=== PATIENT | male | born 1950 | race Caucasian/White ===

== ENCOUNTER → 2017-11-19 | Day surgery (SDC) | payer BC ==
[~2017-11-19] VITALS: Ht 177.8 cm; Wt 84.0 kg
[~2017-11-19] MED LIST: ASPI81TA28 PO; ATOR-22 PO; FENTANYL CITRATE INJ 50 MCG/1 ML 2 ML VIAL ONE; FLUO1SOL; HEPARIN SOD (PORCINE) 1000 UNIT/ML 10 ML VIAL ONE; LISI40TA3 PO; METF500T5 PO; METO25TA56 PO; MIDAZOLAM HCL 1 MG/ML 2ML VIAL ONE; NITROGLYCERIN/D5W 100MCG/ML 20ML SYR ONE; NiCARDipine HCL INJ 2.5 MG/ML 10 ML AMP ONE; ZOLP10TA6 PO
[2017-11-19 08:48] VITALS: BP 133/69; PULSE 55; TEMP 36.5; O2SAT 99; Ht 177.8 cm; Wt 84.0 kg
--- NOTE | 2017-11-19 08:49 | DIAGNOSTIC IMAGING REPORT ---
TWO VIEW CHEST CLINICAL HISTORY: Preoperative examination for cardiac catheterization. FINDINGS: PA and lateral chest radiographs are obtained. No prior studies are available for comparison at the time of dictation. The cardiomediastinal silhouette is unremarkable. There is nonspecific interstitial thickening. No airspace consolidation or pleural effusion is identified. A nipple shadow projects over the left lung base. There is no pneumothorax. The bony thorax appears intact. IMPRESSION: No active disease in the chest. Electronically signed by: Santos Humphries M.D. 11/19/2017 8:48 AM Dictated Date/Time: 11/19/2017 8:47 AM
[2017-11-19 09:11] LABS: BASO ABS # 0.05 K/uL (0-0.2); HEMATOCRIT 40.2 % (42-52); HEMOGLOBIN 13.9 g/dL (14.0-18.0); IG# 0.01 K/uL (0.00-0.02); LYMPH % 32.9 %; LYMPH ABS # 1.66 K/uL (1.2-3.4); MEAN CELL VOLUME 91.2 fL (80-100); MEAN CORPUSCULAR HEMOGLOBIN 31.5 pg (25-34); MONO % 8.3 %; MONO ABS # 0.42 K/uL (0.11-0.59); NEUT % 55.6 %; NEUT ABS # 2.81 K/uL (1.4-6.5); PLATELET COUNT 227 K/uL (130-400); RED CELL DISTRIBUTION WIDTH CV 12.5 % (11.5-14.5); RED CELL DISTRIBUTION WIDTH SD 41.7 fL (36.4-46.3); WHITE BLOOD COUNT 5.05 K/uL (4.8-10.8)
[2017-11-19 09:17] LABS: MEAN CORPUSCULAR HGB CONC 34.6 g/dl (32-36)
[2017-11-19 09:34] LABS: CALCIUM 9.1 mg/dl (8.5-10.1); CREATININE 0.94 mg/dl (0.60-1.40); POTASSIUM 4.7 mmol/L (3.5-5.1)
--- NOTE | 2017-11-19 09:43 | History & Physical Bridge Note ---
H&P Re-Evaluation Bridge Note: I have examined the patient, reviewed the History & Physical and in the interval since the performance of the History & Physical I have noted the following changes of clinical significance: No changes noted
--- NOTE | 2017-11-19 09:45 | Pre Sedation Assessment ---
Pre Sedation Assessment General Date of Sedation: Nov 19, 2017. Vital Signs Past 12 Hours Date Time Temp Pulse Resp B/P (MAP) Pulse Ox O2 Delivery O2 Flow Rate FiO2 11/19/17 08:48 36.5 55 16 133/69 (90) 99 Room Air Review Cardiovascular: regular rate, rhythm, no edema, no gallop, no murmur Lungs: chest non-tender, lungs clear Pre-Sedation Airway Assessment Smoking Status: Never Smoker Hx of Sleep Apnea: Yes Short Thick Neck: No Oral Cavity: WNL Mallampati Classification: Class II ASA Classification: Class III Procedure Planning Contraindications for Sedation: None Current Medications Reviewed: Yes Notes The planned sedation has been discussed with the patient. Informed Consent was obtained. I have identified the patient, determined the appropriateness of sedation and have assessed the patient immediately prior to the procedure. All medicine(s) and interventions are by my order.
--- NOTE | 2017-11-19 10:59 | [facility] Post Operative Brief Note ---
Preliminary Procedure Note Procedure Date Nov 19, 2017. Pre-Procedure Diagnosis Positive Stress Test AUC Score 7 Post-Procedure Diagnosis Moderate CAD Procedure(s) Performed Coronary Angiography, Left Heart Cath, LV Angiography Faucet Polisher Dr. Jose R Naranjo Still Worker Helper(s) Violet Yates Estimated Blood Loss < 15 cc Medication(s) Fentanyl (Fentanyl 12.5 mcg IV), Heparin (5000 units IV), Nicardipine (250 mcg intra-arterial after arterial sheath placed), Versed (1 mg IV), Lidocaine 1% ( Local infiltration at access site) Preliminary Findings Right dominant coronary anatomy Calcification of the proximal left coronary system Left main narrowing in comparison to the left anterior descending diffusely with catheter damping and ventricularization on engagement of the ostium but no defined lesion Left anterior descending: Type III with moderate diffuse \ luminal irregularities, mild ectasia. Large mid vessel origin diagonal. Left circumflex: Consists of a large obtuse marginal and a large posterior lateral branch. There is an ostial 60% narrowing and 70% proximal OM narrowing Ramus intermedius: Moderately large vessel with 50% narrowing origin Right coronary artery: Dominant, with long large posterior descending artery and 2 posterior ventricular branches after the AV groove. There are diffuse luminal irregularities throughout with 30-40% narrowing origin posterior descending artery Left ventricular angiography EF 55% no significant mitral insufficiency Left ventricular end-diastolic pressure 13, no transaortic valve gradient Recommendations management recommendations (Patient referred for IVUS of the ostial left main) Specimens None Fluids (cc crystalloids) 70 Anesthesia Start 1003 Stop 1034 Procedural Complication(s) None Disposition IVUS same setting
--- NOTE | 2017-11-19 11:10 | Post Sedation Assessment ---
Post Sedation Assessment General Date of Sedation Nov 19, 2017. Vital Signs: Vital Signs Past 12 Hours Date Time Temp Pulse Resp B/P (MAP) Pulse Ox O2 Delivery O2 Flow Rate FiO2 11/19/17 11:01 55 16 124/67 (86) 98 Room Air 11/19/17 08:48 36.5 55 16 133/69 (90) 99 Room Air Post Procedure Recovery Score Activity: (2) Moves 4 extremities * Respiration: (2) Deep breath/cough Circulation: (2) +/-20% PreAnes Value Consciousness: (2) Fully Awake Oxygen Saturation: (2) > 92% On Room Air Post Anesthesia Score: 10 Discharge Sedation Level of Care: Fast Track Phase II Post Sedation Plan On clinical assessment, the patient appears to have tolerated the sedation without complications. Patient is recovering as anticipated. Patient will continue to be monitored by nursing and may be discharged when sedation discharge criteria are met per below protocol. Upon Completions of procedure and additional 15 minutes continue every 5 minute vital signs and the P.A.R. score; then discharge to a Phase I or Fast Track to Phase II per the following guidelines: * Discharge Patient to appropriate Phase II area if PAR is 8 or greater or return to pre- procedure baseline. The post - procedure orders will be as directed. * If PAR score is less than 8 or not return to pre-procedure baseline then patient will follow Phase I monitoring till PAR is reached for Phase II. The Phase I may be done in procedure room or may call to secure a Phase I area. * If naloxone or flumazenil are used for reversal, hold in Phase I for an additional 60 -120 minutes before discharge to Phase II. Please call the Sedation Physician to re-evaluate and complete post-note for discharge to Phase II area. Do NOT discharge from procedure sedation or Phase 1 until post- sedation evaluation note is complete by procedure /sedation MD Sedation Discharge Instructions to be given to the patient at discharge to home.
--- NOTE | 2017-11-19 11:28 | Cardiac Catheterization ---
Procedure Note Procedure Date Nov 19, 2017. Pre-Procedure Diagnosis Positive Stress Test AUC Score 7 Post-Procedure Diagnosis Severe CAD Procedure(s) Performed IVUS Drafter Construction missy Structures Mechanic(s) jackson Estimated Blood Loss <10 Medication(s) Heparin, Nicardipine, Versed, Lidocaine 1% Summary of Findings IVUS ASSESSMENT OF LEFT MAIN For full details of patient's coronary angiography please cath report dictated by Dr. Naranjo. Briefly, patient noted to moderate left main disease with catheter dampening with ostial LM engagement. Decision to proceed with further assessment of LM by IVUS. - LM engaged with JL3.5 guide - BMW wire placed into distal LAD - IVUS catheter placed into mid LAD - Pullback showed moderate to severe diffuse, calcified proximal LAD disease ( stenosis in proximal LAD 60-70%, MLA 6.1 cm2). - Ostial LM with severe, mildly calcified disease (CSA 5.2 cm2). - Post procedure angiography revealed no apparent complications. TR Band placed. Summary: 1. Severe ostial LM disease (CSA 5.2 cm2). 2. Moderate to severe calcified diffuse proximal LAD disease (60-70% stenosis). 3. Moderate to severe ostial circumflex and OM disease. Recommendation: -- Referral to [facility] cardiac surgery for consideration of CABG. Hemodynamics Rest Ao: 110/53/80 Final Ao: 122/61/87 LV: -- Recommendations CABG Specimens None Radiation Exposure (mGy) 2055 Contrast (mls) 20 Opti Fluids (cc crystalloids) 62 NSS Drains none Anesthesia moderate Procedural Complication(s) None Disposition R&D Engineer Holding/Recovery ACC Data Cardiac Status Clinical evaluation leading to the procedure CAD Presntation: Positive Stress Test Anginal Classification: CCS III Heart Failure: No, NYHA Class: CCS I Cardiogenic Shock w/in 24Hrs: No Cardiac Arrest w/in 24Hrs: No Imaging studies past 6 months: Yes Stress studies past 6 months: Yes Stress Echocardiogram: Yes - Positive, Risk/Extent of Ischemia (Low) Closure Device Percutaneous Entry Location: Radial Recommendations: CABG Intraprocedure Events Significant Dissection: No Perforation: No
--- NOTE | 2017-11-19 12:59 | Discharge Instructions ---
Discharge Instructions Procedure Procedure Date: Nov 19, 2017. Reason for Visit: *Pt Needs Lab/Xray 1ST*Abn Stress *Dr Naranjo To Do*. Discharge Discharge Date: Nov 19, 2017. Discharge Diagnosis: Ostial left main coronary disease Last Recorded Wt (Kilograms): 84 Anesthesia Post Anesthesia Instructions: If you have had General Anesthesia or IV Sedation: * Do not drive today. * Resume driving when surgeon permits. * Do not make important decisions or sign legal documents today. * Call surgeon for: 1. Temperature elevations greater than 101 degrees F. 2. Uncontrollable pain. 3. Excessive bleeding. 4. Persistent nausea and vomiting. 5. Medication intolerance (nausea, vomiting or rash). * For nausea and vomiting use only clear liquids such as: tea, soda, bouillon until nausea subsides, then gradually increase diet as tolerated. * If you have any concerns or questions, call your surgeon's office. If physician is unavailable and it is an emergency, call 911 or go to the nearest emergency room. Instructions Activity Recommendations: limitations as noted below Recommended Home Diet: resume previous diet Allergies: Coded Allergies: Penicillins (Unverified Allergy, Intermediate, HIVES, 11/19/17) Provider Instructions ACTIVITY RECOMMENDATIONS: Excess manipulation of the wrist should be avoided for the next 24-48 hours. * No lifting over 2 pounds (approximately a 1/2 gallon of milk) with the utilized arm for 24 hours. * No strenuous activity such as bowling or tennis for 3 days. * Keep the site of the procedure covered with a bandage for 24 hours. *You may shower the day after the procedure. Do not take a tub bath or submerge the puncture site in water for the next 3 days. *Do not operate any motorized equipment for 3 days. SPECIAL CARE INSTRUCTIONS: The site may be slightly bruised and sore following your procedure. Should any of the following occur, contact the Dr. who performed your procedure. 1. Redness/inflammation, swelling, chills, or fever, or colored drainage at procedure site within 3-7 days after your procedure. 2. Coldness, discoloration, ongoing numbness, severe pain, or swelling. Expect mild tingling of hand and tenderness at the puncture site for up to three days. If this persists beyond three days, or other symptoms develop, notify the Dr. who performed your procedure. BLEEDING: If the procedure site on your wrist begins to bleed, do not panic 1. Place 1 or 2 fingers firmly just slightly above the insertion site to stop the bleeding. You may be able to feel your pulse as you hold pressure. 2. Lift your finger after 5 minutes to see if the bleeding has stopped. 3. Once the bleeding has stopped, gently wipe the wrist area clean with a bandage. * If the bleeding from your wrist does not stop after 10 minutes, or if there is a large amount of bleeding or spurting, call 911 (do not drive yourself to the hospital). SKIN IRRITATION: * You may experience some redness and/or swelling in the area where radiation was administered. If any skin irritation occurs, please contact your family physician. FOLLOW UP VISIT: Keep any scheduled doctor appointments. Follow Up Additional Instructions: Resume metformin on Friday Follow-up with: Dr Misha Davidson [facility] [place] [facility] 11:30 am Layla Vieira Recommendations: Call your doctor if: * Temperature above 101 degrees * Pain not relieved by pain medicine ordered * There is increased drainage or redness from any incision * You have any unanswered questions or concerns. Your Doctors Instructions noted above were prepared by provider Jose R Naranjo. Patient Signature Section: Patient Instructions Signature Page Nils Ocampo Patient (or Guardian) Signature/Date: I have read and understand the instructions given to me by my caregivers. Caregiver/RN/Doctor Signature/Date: The above-named patient and/or guardian has received patient instructions on this date. + Original Patient Signature Page (only) stays with chart. Please make copy for patient.
[2017-11-19 13:45] VITALS: O2SAT 98
[2017-11-19 14:00] VITALS: BP 110/71
--- NOTE | 2017-11-19 16:56 | CARDIAC CATH REPORT ---
PROCEDURES: Left heart catheterization, coronary and left ventricular angiography. INDICATIONS: Abnormal stress testing, angina. BRIEF HISTORY: Patient is a 67-year-old male with multiple cardiac risk factors of hypertension, diabetes mellitus, hyperlipidemia, with recent symptoms of chest discomfort with resultant stress testing demonstrating stress induced ST segment changes at moderately high level workload and subtle apical wall motion abnormalities. Due to risk factors, ongoing symptoms, and above findings, he is referred for diagnostic cardiac catheterization, prior CT scan for noncardiac indications demonstrating significant calcification in the coronaries. ACCESS: Right radial. CATHETERS: 6-Australian long glide sheath, 5-Australian [place], 5-Australian straight pigtail catheter. CONTRAST: Nonionic x107 mL Optiray. SEDATION: Start time 10:03, end time 10:34. 1 mg IV Versed, 12.5 mcg IV fentanyl. INTRAVENOUS FLUIDS: 70 mL normal saline. ADDITIONAL MEDICATIONS: Patient received local infiltration of access site with 1% lidocaine. After arterial sheath was inserted, an intraarterial injection of 250 mcg of nicardipine was given. After central access obtained, 5000 units IV heparin was given. COMPLICATIONS: None. RADIATION EXPOSURE: Fluoroscopy 3.4 minutes, 1156 mGy, DAP score 7294. RESULTS: CORONARY ANGIOGRAPHY: Right Coronary: Right coronary dominant anatomy is noted. There is moderate calcification in the proximal left coronary system. Left Main: Left main is very modest in caliber in comparison in diameter of left anterior descending. It was notable for ostial taper and damping on engagement of the left main with 5-Australian catheter. Possible significant obstruction. Patient was referred for IVUS interrogation, see report in separate cover with ostial obstruction confirmed. Left Anterior Descending: Left anterior descending is type 3 in distribution. It gives rise to a large diagonal branch in its mid portion followed by a small diagonal branch. Within the proximal segment, there was eccentric 60% narrowing in its proximal portion, diffuse luminal irregularities in the distal vessel. Origin of the first large diagonal was narrowed by 50% at its origin. Ramus Intermedius: This was a moderately large vessel with 50% narrowing at its origin. Left Circumflex: Left circumflex consists of a large obtuse marginal in the posterolateral branch. Origin of the circumflex was narrowed by 70%, and proximal 70% narrowing of the obtuse marginal was also observed. Right Coronary Artery: The right coronary is large and dominant in distribution. It gives rise to a sinoatrial branch, 2 right ventricular branches, accessory PDA, large primary PDA, and along the AV groove, 2 posterior ventricular branches. Within the right coronary artery, there were diffuse luminal irregularities and ectasia. 40% narrowing is present at the origin of the posterior descending artery. Hemodynamics: Initial aortic root pressure was 115/58 with a mean of 83. LV pressure is 123/1 with an EDP of 13. On pullback to the aortic root, there was no transaortic valve gradient. In portion of the initial portion of the study, blood pressure was 106/63 with a mean of 83. IMPRESSION: 1. Left main calcification and narrowing with catheter damping, with ostial obstruction confirmed by IVUS, please see separate report, reflecting ostial left main disease. Patient was referred for IVUS interrogation of the left main with report dictated in separate setting via Dr. Starkey. Study did demonstrate significant ostial obstruction as well as diffuse disease in the proximal left anterior descending. 2. Diffuse luminal irregularities, all vasculature, with eccentric 60% narrowing, proximal left anterior descending, 70% ostial right coronary artery stenosis, 70% narrowing of obtuse marginal. Diffuse disease in all vasculature with origin narrowing of the circumflex, marginal by 60%-70% and the circumflex by 70%. 3. Preserved left ventricular systolic function, ejection fraction 55%. 4. Normal left end diastolic pressures. RECOMMENDATIONS: Patient will be referred for surgical revascularization.
== END | disposition home or self-care (01) ==
LOC: C.CATH 08:10
PROVIDERS: ATTEND Internal Medicine Cardiovascular Disease
DX: R94.39 Abnormal result of other cardiovascular function study (principal); I25.119 Atherosclerotic heart disease of native coronary artery with unspecified angina pectoris; I10 Essential (primary) hypertension; E11.9 Type 2 diabetes mellitus without complications; E78.5 Hyperlipidemia, unspecified; Z88.0 Allergy status to penicillin; Z79.899 Other long term (current) drug therapy; Z79.84 Long term (current) use of oral hypoglycemic drugs; Z79.82 Long term (current) use of aspirin